=== PATIENT | male | born 1950 | race Caucasian/White ===

== ENCOUNTER → 2018-10-03 | Outpatient (CLI) | payer OTHER ==
--- NOTE | 2018-10-05 07:58 | PF ---
[address] [address] PULMONARY FUNCTION REPORT Name: GRANT STOLL Room: [facility]#: [id number] Admission: 10/03/18 Attend Phys: Jacy Zuniga MD Discharge: Date of : 52 Report #: [id number] THIS REPORT FOR: //name// CC: Anthony Noel DO Jacy Zuniga MD DATE OF SERVICE: 10/03/2018 ATTENDING PHYSICIANS: Anthony Noel D.O., and Jacy Zuniga M.D. The patient is a 68-year-old male with a history of severe COPD. Full PFTs are indicated. Spirometry was performed. He had no significant improvement after single dose of inhaled bronchodilator. Post-bronchodilator results show an FEV1 of 1.5, FVC of 3.5 liters, ratio is 43%, FEV1 is 43% of predicted. FVC is 75% of predicted, marked decrease in mid flow rates with 15% of predicted on FEF 25-75. Lung volumes performed via plethysmography showed hyperinflation with RV to TLC to be elevated and then RV was elevated at 186% of predicted. Total lung capacity is 114% of predicted with a measured of 8 liters and then FVC was 3.5 liters at 75% of predicted. Diffusion when corrected for alveolar volume was within normal limits at 119. IMPRESSION: Abnormalities suggest severe obstructive defect with hyperinflation and normal DLCO. No significant response to bronchodilator is noted. <ELECTRONICALLY SIGNED> By: Bhaskar Ingram MD 10/05/18 0758 [id number] [id number] Ingram MD /nt
== END ==
LOC: M.PUL 09:27
DX: J43.9 Emphysema, unspecified (principal); E78.2 Mixed hyperlipidemia; I10 Essential (primary) hypertension; F32.9 Major depressive disorder, single episode, unspecified; J98.11 Atelectasis; Z79.899 Other long term (current) drug therapy

== ENCOUNTER 2019-01-28 13:40 | Inpatient (IN) | payer OTHER ==
[~2019-01-28] VITALS: Ht 180.3 cm; Wt 102.1 kg
[2019-01-28 13:40] VITALS: BP 159/72
[2019-01-28] MEDS ORDERED: TRELEGY ELLIPT1 EACH INH (13:54)
[2019-01-28] MEDS ORDERED: CARVEDILOL12.5 MG PO (13:54)
[2019-01-28] MEDS ORDERED: PROZAC20 M1 PO (13:55)
[2019-01-28] MEDS ORDERED: ZOCOR 20 MG TAB20 M1 PO (13:55)
[2019-01-28] MEDS ORDERED: SINGULAIR 10 MG10 MG PO (13:55)
[2019-01-28] MEDS ORDERED: MELOXICAM15 MG PO (13:55)
[2019-01-28 14:51] LABS: HEMOGLOBIN 12.4 gm/dL (14.0-18.0); MCH 32.4 pg (26.0-34.0); MCHC 34.6 g/dL (28.0-37.0); MCV 93.9 fL (80.0-100.0); MPV 8.8 fl. (7.2-11.1); NUCLEATED RBCS 0 /100WBC; PLATELET COUNT* 168 thou/uL (150-400); RBC 3.83 mil/uL (4.50-6.00); RDW-CV 13.7 % (10.5-14.5); WBC 8.2 thou/uL (4.0-11.0)
[2019-01-28 15:04] LABS: CREATININE 1.3 mg/dL (0.6-1.3); POTASSIUM 3.8 mmol/L (3.5-5.1)
[2019-01-28 15:08] LABS: ALBUMIN 2.8 g/dL (3.4-5.0); TOTAL BILIRUBIN 1.2 mg/dL (<0.1-1.0); TOTAL PROTEIN 6.7 g/dL (6.4-8.2)
[2019-01-28 15:33] LABS: ABSOLUTE EOSINOPHILS 0.2 thou/uL (0.0-0.7); ABSOLUTE LYMPHOCYTES 0.7 thou/uL (0.8-5.3); ABSOLUTE MONOCYTES 0.7 thou/uL (0.0-1.2); ABSOLUTE NEUTROPHILS 6.6 thou/uL (1.6-8.1); PLATELET ESTIMATE ADEQUATE
[2019-01-28 18:05] VITALS: BP 134/66
[2019-01-29 00:20] VITALS: BP 106/52
[2019-01-29 04:00] VITALS: BP 130/62
[2019-01-29 04:17] LABS: HEMATOCRIT 35.7 % (42.0-52.0); HEMOGLOBIN 11.9 gm/dL (14.0-18.0); MCH 31.2 pg (26.0-34.0); MCHC 33.2 g/dL (28.0-37.0); MPV 8.2 fl. (7.2-11.1); RBC 3.8 mil/uL (4.50-6.00); RDW-CV 14.1 % (10.5-14.5); WBC 13.2 thou/uL (4.0-11.0)
[2019-01-29 05:00] LABS: CALCIUM 8.3 mg/dL (8.5-10.1); CREATININE 1.4 mg/dL (0.6-1.3); POTASSIUM 4.4 mmol/L (3.5-5.1)
[2019-01-29 07:52] VITALS: BP 116/64
--- NOTE | 2019-01-29 13:08 | EKG ---
[place] [address] ELECTROCARDIOGRAM REPORT Name: GRANT STOLL Room: [address] M.R.#: [id number] Admission: 01/28/19 Attend Phys: Karis Gatica DO Discharge: Date of : 52 Report #: [id number] THIS REPORT FOR: //name// [facility] ED Test Date: 2019-01-28 Test Time: 13:47:22 Pat Name: GRANT STOLL Department: Room: [facility] Gender: M Mud Trucker: : 1950 Requested By: Freddie Aguirre Order Number: [id number] MD: Jameson Brooks Measurements Intervals [place] Rate: 68 P: 25 GA: 150 QRS: 70 QRSD: 90 T: 34 QT: 377 QTc: 401 Interpretive Statements Sinus rhythm Borderline low voltage, extremity leads No previous ECG available for comparison Electronically Signed On 01-29-2019 13:07:51 RESEARCH AND EVALUATION ANALYST by Jameson Brooks [email or web address] <ELECTRONICALLY SIGNED> By: Jameson Brooks MD, [facility] 01/29/19 1307 1347 46 Jameson Brooks MD, FACC /EPI
[2019-01-29 16:29] VITALS: BP 103/56
[2019-01-29 21:30] VITALS: BP 123/69
[2019-01-30] VITALS: BP 115/61
[2019-01-30 05:21] LABS: HEMATOCRIT 34.2 % (42.0-52.0); HEMOGLOBIN 11.3 gm/dL (14.0-18.0); MCHC 33.1 g/dL (28.0-37.0); MCV 93.5 fL (80.0-100.0); MPV 8.3 fl. (7.2-11.1); RBC 3.66 mil/uL (4.50-6.00); RDW-CV 14.1 % (10.5-14.5); WBC 11.6 thou/uL (4.0-11.0)
[2019-01-30 05:30] LABS: CALCIUM 8.2 mg/dL (8.5-10.1); CREATININE 1.3 mg/dL (0.6-1.3); POTASSIUM 4.2 mmol/L (3.5-5.1)
[2019-01-30 07:41] VITALS: BP 119/68
[2019-01-30 15:31] VITALS: BP 116/66
[2019-01-30 20:00] VITALS: BP 129/79
[2019-01-31 04:14] LABS: HEMATOCRIT 32.4 % (42.0-52.0); HEMOGLOBIN 10.9 gm/dL (14.0-18.0); MCH 31.2 pg (26.0-34.0); MCHC 33.7 g/dL (28.0-37.0); MCV 92.7 fL (80.0-100.0); MPV 7.9 fl. (7.2-11.1); RBC 3.49 mil/uL (4.50-6.00); WBC 7.8 thou/uL (4.0-11.0)
[2019-01-31 04:51] LABS: CREATININE 1.2 mg/dL (0.6-1.3); POTASSIUM 4.2 mmol/L (3.5-5.1)
[2019-01-31 07:40] VITALS: BP 143/77
[2019-01-31 12:04] VITALS: BP 143/77
[2019-01-31] MEDS ORDERED: ROXICODONE5 MG PO (12:29)
[2019-01-31] MEDS ORDERED: AUGMENTIN 875-1 EACH PO (12:30)
[2019-01-31 12:31] VITALS: BP 143/77
[2019-01-31 13:27] VITALS: BP 143/77
--- NOTE | 2019-01-31 17:06 | PATH ---
[address] [address] PATHOLOGY RPT PROCEDURE Name: GRANT STOLL Room: [address] .R.#: [id number] Admission: 01/28/19 Date of : 52 Discharge: 01/31/19 Report #: [id number] Path Case #: [id number] [facility] Accession Number: [id number] . 01 Material submitted: . appendix - APPENDIX . 01 Clinical history: . Pre-op diagnosis: Appendicitis Post-op diagnosis: Appendicitis, perforated; peritonitis . 02 Diagnosis: Appendix: - Acute gangrenous appendicitis, periappendicitis, and serositis with perforation. (PRASHANTH:bernard; 01/31/2019) MBR 01/31/2019 1232 Local . 02 Electronically signed: . Edilberto Hernandez MD, Pathologist NPI- [id number] . 01 Gross description: . The specimen is received in formalin, labeled "Grant Stoll, appendix". Received is a vermiform appendix measuring 6.5 cm in length and ranging in diameter from 0.5 to 1.3 cm with a large amount of attached mesoappendix. The serosal surface is pale masters to dusky green-masters in appearance with overlying exudate. An area of perforation measuring 0.1 cm is identified located 4.6 cm from the proximal margin. Surrounding serosal surface is inked blue. The surgical margin is closed with a line of lamberto, which are removed and the new margin is inked black. At the area of perforation, the serosal wall is severely thin and paper-like. Sectioning reveals a pinpoint to dilated lumen filled with fecal material. The specimen is submitted representatively as follows: . A1 proximal margin and bisected tip A2 entire area of perforation A3 additional cross sections of appendix. (CAA; 01/30/2019) QAC/QAC 01/31/2019 1231 Local . 02 Pathologist provided ICD-10: K35.80, K65.8 . 02 CPT . 686805 Specimen Comment: A courtesy copy of this report has been sent to [phone], [phone], [place] [address] PATHOLOGY RPT PROCEDURE Name: GRANT STOLL Room: [address] IN [facility].#: [id number] Admission: 01/28/19 Date of : 52 Discharge: 01/31/19 Report #: [id number] Path Case #: [id number] Specimen Comment: [id number] Specimen Comment: Report sent to / DR SIDDIQI Performed at: [address], [place], [place] [id number] MD Jean Paul Lucero MD Phone: [phone] Performed at: 02 [facility] [address], [place], [place] [id number] MD Edilberto Hernandez MD Phone: [phone]
--- NOTE | 2019-02-01 09:58 | OP ---
[address] [address] OPERATIVE REPORT Name: JERMANGRANT Og Room: [address]R.#: [id number] Admission: 01/28/19 Attend Phys: Karis Gatica DO Discharge: 01/31/19 Date of : 52 Report #: [id number] THIS REPORT FOR: //name// CC: Anthony Gatica DICTATED BY: Shamir Quinones DO DATE OF SERVICE: 01/28/2019 PREOPERATIVE DIAGNOSIS: Acute appendicitis, incarcerated umbilical hernia. POSTOPERATIVE DIAGNOSES: Acute ruptured appendicitis with purulent peritonitis and incarcerated umbilical hernia. PRIMARY SURGEON: Karis Gatica DO. COSURGEON: Shamir Quinones DO, PGY3 and Katya MS3. OPERATION PERFORMED: Laparoscopic appendectomy and primary repair of umbilical hernia. ANESTHESIA: General and local. ESTIMATED BLOOD LOSS: 5 mL. SPECIMEN: Appendix. COMPLICATIONS: None. FINDINGS: Acute appendicitis with localized rupture, purulent peritonitis, incarcerated umbilical hernia, hyperemic small bowel. INDICATIONS FOR PROCEDURE: The patient is a pleasant 68-year-old male who presented to the ED this evening with chief complaint of increasing right lower quadrant abdominal pain over the past 5 days with associated chills, nausea, and constipation. The patient was found to have no leukocytosis and labs were within normal limits. The patient was found to have acute appendicitis on CT abdomen and pelvis, recommended laparoscopic appendectomy. Full discussion of procedure, alternatives, risks, and possible complications discussed to include, but not limited to bleeding, infection, postoperative pain, scarring, hernia, injury to other underlying abdominal organs mainly bowel or bladder, conversion to open procedure, stump of appendicitis, and staple line failure as well as anesthesia risks. The patient wished to understand these risks and agreed to [place] [address] OPERATIVE REPORT Name: JERMANGRANT L Room: [address]#: [id number] Admission: 01/28/19 Attend Phys: Karis Gatica DO Discharge: 01/31/19 Date of : 52 Report #: [id number] DESCRIPTION OF PROCEDURE: The patient was again seen and examined in preoperative holding. Fully informed written consent was obtained. Preoperative antibiotics were given. The patient was subsequently transported to operating room suite and placed on the operating table in a supine position. At this time, Anesthesia induced general anesthesia via endotracheal intubation. This was successful. SCDs were placed to bilateral lower extremity calves. Left arm was tucked. Right arm was placed on an arm board. Grounding pad was placed to right lateral thigh. All extremities and joints were padded and protected. The patient was prepped and draped using standard sterile fashion. Time-out was performed prior to onset of procedure. We began by making a horizontal incision superior to the umbilicus. Using open Quesada technique, we dissected down through subcutaneous tissue until encountered an umbilical hernia sac. This was dissected circumferentially until the fascial defect was encountered. Hernia was reduced into the abdomen. Kochers were placed to bilateral edges and two 0-Vicryl stay sutures were placed in the fascial edges. Next, finger sweep was performed to ensure we were into the abdomen. A 12-mm Edwina trocar was placed in the abdomen. Abdomen was insufflated first using low flow then high flow. A 5 mm 0 degree laparoscopic camera was placed into the abdomen, noting no injury to underlying structures upon entry into the abdomen. We noted immediately diffuse purulent peritonitis and hyperemic small bowel. An additional 5-mm trocar was placed in the left lower quadrant and the suprapubic region. Using a laparoscopic Boswell and suction ed teacher, omentum and small bowel inflammatory adhesions were all taken down from the right lower quadrant. The patient was placed in Trendelenburg with the left side down. The appendix was noted to be sucked into the lateral abdominal wall in the right lower quadrant as well as the base retrocecal. Cecum was mobilized. The appendix base was visualized. The appendix tip was elevated out of the abscess cavity and traced back to its base. [place] dissector was used to make a window at the appendix base. At this time, an Endo-CANDICE 45 purple load was used to staple the appendix across its base. For further mobilization of the mesoappendix, an additional 45 purple load was used to take the mesoappendix. The appendix was then placed into a 10-mm EndoCatch bag through the umbilical trocar. Laparoscopic irrigation and suction was performed copiously with 1 liter of normal saline. A 15-Swiss hubless JERMAINE drain was placed through the suprapubic trocar and the drain was placed into the right lower quadrant. At this time, the patient was placed back supine. Abdomen was desufflated under direct visualization. The left lower quadrant trocar was removed. Staple lines were visualized both prior to desufflation and during desufflation with no ongoing hemorrhage or active hemorrhage. Once that was fully desufflated, camera was removed. The fascial defect was closed with a 0-Vicryl in a [id number] fashion. The skin was closed using a running subcuticular 4-0 Monocryl. The additional 5 mm trocar sites were closed using a subcuticular 4-0 Monocryl in interrupted fashion. A 30 mL 0.5% Marcaine was used in total for local anesthetic. Abdomen was cleansed using wet and dry lap. Sterile dressings applied. Mastisol, Steri-Strips, Tegaderms, 4 x 4s, and gauze were placed under the Tegaderms. The patient tolerated the procedure well, [place] [address] OPERATIVE REPORT Name: GRANT STOLL Room: [address]#: [id number] Admission: 01/28/19 Attend Phys: Karis Gatica DO Discharge: 01/31/19 Date of : 52 Report #: [id number] extubated in the OR, transferred to PACU in stable condition after brief recovery from anesthesia and then transferred to the floor for ongoing care and IV antibiotics as well as drain management. We will start the patient on clear liquids and go slow with diet as the small bowel was very hyperemic. <ELECTRONICALLY SIGNED> By: Karis Gatica DO 02/01/19 0958 99 [id number] Gatica DO /nt
== END 2019-01-31 13:25 | disposition home or self-care (01) | DRG 339 ==
LOC: M.ERS 13:40 → M.TBA-ER 18:29 → M.ORTHSURG 18:29
PROVIDERS: Family Medicine; Surgery; ADMIT Surgery
PROC: 0WQF4ZZ Repair Abdominal Wall, Percutaneous Endoscopic Approach (ICD-10-PCS; principal; 2019-01-28)
PROC: 0DTJ4ZZ Resection of Appendix, Percutaneous Endoscopic Approach (ICD-10-PCS; principal; 2019-01-28)
DX: K35.33 Acute appendicitis with perforation, localized peritonitis, and gangrene, with abscess (principal); K42.0 Umbilical hernia with obstruction, without gangrene; F32.9 Major depressive disorder, single episode, unspecified; J44.9 Chronic obstructive pulmonary disease, unspecified; E78.5 Hyperlipidemia, unspecified; I10 Essential (primary) hypertension; Z96.652 Presence of left artificial knee joint

== ENCOUNTER → 2019-07-26 | Day surgery (SDC) | payer OTHER ==
[~2019-07-26] MED LIST: ASA81BEC PO; AUGMENTIN 875-1 EACH PO; CARVEDILOL12.5 MG PO; MELOXICAM15 MG PO; PROZAC20 M1 PO; ROXICODONE5 M2 PO; ROXICODONE5 MG PO; SINGULAIR 10 MG10 MG PO; TRELEGY ELLIPT1 EACH INH; ZOCOR 20 MG TAB20 M1 PO
[2019-07-26 08:06] LABS: HEMATOCRIT 39.2 % (42.0-52.0); HEMOGLOBIN 13.5 gm/dL (14.0-18.0); MCH 31.7 pg (26.0-34.0); MCHC 34.4 g/dL (28.0-37.0); MCV 92.2 fL (80.0-100.0); MPV 7.9 fl. (7.2-11.1); RBC 4.25 mil/uL (4.50-6.00); RDW-CV 13.7 % (10.5-14.5); WBC 6.1 thou/uL (4.0-11.0)
[2019-07-26 08:17] LABS: CALCIUM 8.2 mg/dL (8.5-10.1); CREATININE 1.3 mg/dL (0.6-1.3)
--- NOTE | 2019-07-31 08:21 | OP ---
[address] [address] OPERATIVE REPORT Name: GRANT STOLL Room: [facility]#: [id number] Admission: 07/26/19 Attend Phys: Karis Gatica DO Discharge: Date of : 52 Report #: [id number] THIS REPORT FOR: //name// cc: Anthony Noel Bradley L. DO ~ THIS REPORT FOR: //name// CC: Anthony Gatica DATE OF SERVICE: 07/26/2019 PREOPERATIVE DIAGNOSIS: Recurrent umbilical hernia. POSTOPERATIVE DIAGNOSIS: Recurrent umbilical hernia. FINDINGS: A 2 x 1 cm umbilical hernia. SURGEON: Karis Gatica DO COSURGEON: Keri Alves, PGY-2. ATTENDANT ARCADE: None. PROCEDURE PERFORMED: Repair of recurrent umbilical hernia with mesh. ANESTHESIA: General, local and TAP's blocks. ESTIMATED BLOOD LOSS: 5 mL. DRAINS: None. SPECIMENS: None. COMPLICATIONS: None. CONDITION: Stable. DISPOSITION: PACU to home. HISTORY OF PRESENT ILLNESS: The patient is a very pleasant 69-year-old male who is known to me from a previous laparoscopic appendectomy. At the time of that surgery, we did not identify an umbilical hernia and this was closed primarily during that surgery. The patient then presented to my office with complaints of hernia had recurred. On physical exam, he was corrected, there was a reducible umbilical hernia present. He was then consented for repair of this with [facility] [address] [place] [address] OPERATIVE REPORT Name: JERMANGRANT L Room: [facility]#: [id number] Admission: 07/26/19 Attend Phys: Karis Gatica DO Discharge: Date of : 52 Report #: [id number] possible mesh. Risks discussed included bleeding, infection, pain, scar formation, recurrence, mesh complications, need for further surgery and risks of anesthesia. The patient understood these risks and elected to proceed. DESCRIPTION OF PROCEDURE: The patient was brought to the operating room. He was laid supine on the operating room table. SCDs were placed on bilateral lower extremities. Ancef was given in the perioperative period. General LMA anesthesia was induced by Anesthesia without difficulty. TAP's blocks were then also provided by Anesthesia without issue. Abdomen was prepped and draped in standard sterile fashion. Timeout was performed to verify patient and procedure. A 10 mL of 0.5% Marcaine were injected in the supraumbilical area at the site of an old incision. Incision was reopened using a 10 blade. Cautery was used for hemostasis. Then, using a combination of blunt and cautery dissection, we dissected down until the hernia sac was visualized. The hernia sac was quite thin. It was dissected free from the umbilicus and then handed off. The defect was easily visualized at this point. Kochers were placed on the edges of the fascial defect. The subcutaneous tissues were cleared from the edges of the fascia. Finger was introduced into the abdomen to assure that there were no shane-incisional adhesions, none were identified. The fascial defect was then measured, it measured 2 x 1 cm. A medium lummi Ventralex ST mesh was then brought onto the field and was easily deployed within the abdomen. Care was taken to make sure that the mesh was flat and that no intra-abdominal contents were caught between the mesh and the anterior abdominal wall. Mesh was then sutured to the anterior abdominal wall using 6 interrupted stitches of 0 Prolene in an inverted fashion. The hernia defect itself was then closed using 3 interrupted stitches of 0 Prolene, also in inverted fashion. This provided excellent closure of the hernia defect. An additional 10 mL of 0.5% Marcaine were injected in the fascia. Wound was then closed in a layered fashion using deep and superficial stitches of 3-0 Vicryl in inverted interrupted fashion. Skin wound was closed with running 4-0 Monocryl. A total of 20 mL of 0.5% Marcaine were used to anesthetize the wound. Wound was then cleansed and covered with skin glue. The patient was then allowed to awake from anesthesia, was extubated and transported to the recovery room with no further difficulties. Counts were correct x 2 at the conclusion of the case. Binder was placed in the operating room. <ELECTRONICALLY SIGNED> By: Karis Gatica DO 07/31/19 0821 1040 [id number] Gatica DO /christiano
== END | disposition home or self-care (01) ==
LOC: M.SUR 07:12
PROVIDERS: ATTEND Surgery
DX: K42.9 Umbilical hernia without obstruction or gangrene (principal); Z11.59 Encounter for screening for other viral diseases